=== PATIENT | female | born 2000 | race Two or more races ===

== ENCOUNTER 2023-06-21 08:57 | Emergency (ER) | payer OTHER ==
[~2023-06-21] VITALS: Ht 162.6 cm; Wt 84.4 kg
[2023-06-21] MEDS ORDERED: FOLIC ACID20 MG (09:04)
[2023-06-21 10:10] LABS: URINE APPEARANCE Clear; URINE BILIRRUBIN Negative (NEGATIVE); URINE BLOOD Negative; URINE COLOR Yellow; URINE GLUCOSE Negative (NEGATIVE); URINE LEUKOCYTE Negative; URINE NITRATE Negative; URINE PROTEIN Negative (NEGATIVE)
[2023-06-21 10:11] LABS: HEMATOCRIT 41.2 % (36.0-45.00); HEMOGLOBIN 13.6 g/dL (12.0-15.00); MEAN CELL VOLUME 85.9 fL (80.00-100.00); MEAN CORPUSCULAR HEMOGLOBIN 28.3 pg (27.00-32.0); MEAN CORPUSCULAR HGB CONC 32.9 g/dl (32.0-36.0); PLATELET COUNT 310 K/uL (150-450); RED BLOOD COUNT 4.79 M/uL (4.00-6.00); RED CELL DISTRIBUTION WIDTH 13.5 % (11.5-14.5)
[2023-06-21 10:15] LABS: URINE BACTERIA 236.8 uL (0.0-1933); URINE EPITHELIAL CELLS 7.8 uL (0.0-38.8); URINE RBC 5.3 uL (0.0-20.8); URINE WBC 7.7 uL (0.0-23.2)
[2023-06-21 11:07] LABS: CALCIUM 9.3 mg/dL (8.5-10.1); CREATININE SERUM 0.56 mg/dL (0.55-1.02); POTASSIUM 4.5 mEq/L (3.5-5.1)
== END 2023-06-21 12:22 | disposition home or self-care (01) ==
LOC: ER 08:57
PROVIDERS: General Practice
DX: O26.891 Other specified pregnancy related conditions, first trimester (principal); Z3A.01 Less than 8 weeks gestation of pregnancy; R10.13 Epigastric pain

== ENCOUNTER 2023-11-03 15:46 | Outpatient (CLI) | payer OTHER ==
[~2023-11-03 15:46] MED LIST: FOLIC ACID20 MG
== END 2023-11-03 15:48 | disposition home or self-care (01) ==
LOC: PRENATAL 15:46
PROVIDERS: ATTEND Obstetrics & Gynecology Maternal & Fetal Medicine
DX: O35.3XX0 Maternal care for (suspected) damage to fetus from viral disease in mother, not applicable or unspecified (principal); O44.00 Complete placenta previa NOS or without hemorrhage, unspecified trimester; Z3A.23 23 weeks gestation of pregnancy